=== PATIENT | female | born 1985 ===

== ENCOUNTER 2022-06-28 20:14 | Emergency (ER) | payer OTHER ==
[2022-06-28 21:13] LABS: CARBON DIOXIDE,CO2 24.8 mmol/L (21.0-32.0); POTASSIUM,K 3.3 mmol/L (3.5-5.1)
[2022-06-28] MEDS ORDERED: Iopamidol 755 MG/ML 500 ML Multipack Bottle IVPUSH STA (21:15)
[2022-06-28] MEDS ORDERED: Acetaminophen 325 MG Tab PO ONE (21:38)
[2022-06-28] MEDS ORDERED: Lactated Ringers 1,000 ML IV ONE (21:38)
[2022-06-28] MEDS ORDERED: Prochlorperazine 10 MG in Sodium Chloride 0.9% 50 ML IV ONE (21:38)
[2022-06-28] MEDS ORDERED: Ketorolac 30 MG/ML SDV IVPUSH ONE (21:39)
[2022-06-28] MEDS ORDERED: Prochlorperazine 10 MG/2 ML SDV ONE (21:57)
[2022-06-28] MEDS ORDERED: Prochlorperazine 10 MG/2 ML SDV IVPUSH STA (22:03)
== END 2022-06-29 00:54 | disposition home or self-care (01) ==
LOC: MW.ED 20:14
DX: R51.9 Headache, unspecified (principal); V49.40XA Driver injured in collision with unspecified motor vehicles in traffic accident, initial encounter; Y92.410 Unspecified street and highway as the place of occurrence of the external cause
CPT/HCPCS: 36415; 70450; 70496; 70498; 71260; 80053; 84703; 85025; 96361; 96374; 96375; 99284; A9270; J0780; J1885; J7120; Q9967